=== PATIENT | female | born 1980 | race Two or more races ===

== ENCOUNTER 2017-03-08 05:02 | Emergency (ER) | payer OTHER ==
[~2017-03-08] VITALS: Ht 157.5 cm; Wt 54.4 kg
[2017-03-08 05:09] VITALS: BP 134/72
[2017-03-08] MEDS ORDERED: CARBAMIDE PEROXIDE OTIC 15 ML BOTTLE ONE (06:24)
[2017-03-08] MEDS ORDERED: CARBAMIDE PEROXIDE OTIC 15 ML BOTTLE OT ONE (07:00)
== END 2017-03-08 06:46 | disposition home or self-care (01) ==
LOC: ER 05:04
DX: K04.7 Periapical abscess without sinus (principal); H61.22 Impacted cerumen, left ear
CPT/HCPCS: 99283; A4606; Z7610

== ENCOUNTER 2017-04-08 03:57 | Emergency (ER) | payer OTHER ==
[~2017-04-08] VITALS: Ht 157.5 cm; Wt 55.8 kg
[2017-04-08 04:00] VITALS: BP 129/74
== END 2017-04-08 04:51 | disposition home or self-care (01) ==
LOC: ER 04:01
DX: K04.7 Periapical abscess without sinus (principal); H61.22 Impacted cerumen, left ear; F17.200 Nicotine dependence, unspecified, uncomplicated
CPT/HCPCS: 69209; 99283; A4606; Z7610

== ENCOUNTER 2018-01-18 01:48 | Emergency (ER) | payer MEDICAID, OTHER ==
[~2018-01-18] VITALS: Ht 157.5 cm; Wt 56.7 kg
--- NOTE | 2018-01-18 01:48 | NUR ---
BB SELF; LEFT MOUTH, FACE SWELLING X 2 DAY. NO SOB. PAIN /10 W/SWELLING. VSS NAD. A/X4 ABLE TO MAKE NEEDS KNOWN. WILL CONTINUE TO MONITOR FOR ANY CHANGES DURING THE SHIFT.
[2018-01-18] MEDS ORDERED: CLINDAMYCIN 600 MG in IV D5W 100 ML IV ONE (03:00)
[2018-01-18] MEDS ORDERED: IOHEXOL-300 100 ML VIAL IV ONE (03:22)
[2018-01-18] MEDS ORDERED: IV NS 0.9% 250 ML IV ONE (03:23)
[2018-01-18] MEDS ORDERED: CLINDAMYCIN 900 MG/6 ML VIAL ONE (03:24)
[2018-01-18 03:32] LABS: BASOPHILS % (AUTO) 0.7 % (0.0-2.0); EOSINOPHILS % (AUTO) 1.3 % (0.0-6.0); HEMATOCRIT 32 % (33-45); HEMOGLOBIN 10.6 g/dL (11.5-14.8); LYMPHOCYTES # (AUTO) 1.9 /CMM (0.8-4.8); MEAN CORPUSCULAR HGB CONC 33 g/dl (31.0-36.0); MEAN CORPUSCULAR VOLUME 79 fL (82-100); MONOCYTES # (AUTO) 0.6 /CMM (0.1-1.30); MONOCYTES % (AUTO) 7.6 % (2.0-12.0); NEUTROPHILS # (AUTO) 4.8 /CMM (1.8-8.9); NEUTROPHILS % (AUTO) 64.4 % (43.0-81.0); PLATELET COUNT (AUTO) 309 /CMM (150-450); RDW COEFFICIENT OF VARIATION 15.1 (11.5-15.0); RED BLOOD CELL COUNT(AUTO) 4.11 MIL/uL (4.0-5.2); WHITE BLOOD COUNT (AUTO) 7.4 K/uL (4.3-11.0)
[2018-01-18 03:40] LABS: CALCIUM, SERUM 8.6 mg/dL (8.5-10.1); CREATININE 0.7 mg/dL (0.6-1.3); POTASSIUM 3.6 mmol/L (3.5-5.1)
--- NOTE | 2018-01-18 04:00 | NUR ---
PT OFF TO CT
--- NOTE | 2018-01-18 04:17 | NUR ---
PT BACK FROM CT
--- NOTE | 2018-01-18 04:47 | NUR ---
PT COMFORTABLE IN BED SLEEPING.
[2018-01-18 05:19] VITALS: BP 131/81
== END 2018-01-18 05:20 | disposition home or self-care (01) ==
LOC: ER 01:48
DX: K04.7 Periapical abscess without sinus (principal); L03.211 Cellulitis of face; J32.9 Chronic sinusitis, unspecified; F17.200 Nicotine dependence, unspecified, uncomplicated; Z60.2 Problems related to living alone
CPT/HCPCS: 36415; 70486; 70491; 80048; 83605; 85025; 85730; 87040 ×2; 96365; 99285; A4606; J3490 ×2; J7050; J7060 ×2; Q9967; Z7610

== ENCOUNTER → 2023-03-06 | Emergency (ER) | payer MEDICAID, OTHER ==
[~2023-03-06] VITALS: Ht 165.1 cm; Wt 76.2 kg
[~2023-03-06] MED LIST: AMOX500C2 PO; CLINDAMYCIN 900 MG/6 ML VIAL IM ONE; CLINDAMYCIN 900 MG/6 ML VIAL ONE; HYDR-3972 PO; LIDOCAINE /MPF 1% VIAL 5 ML VIAL ONE
--- NOTE | 2023-03-06 12:35 | NUR ---
C/O RIGHT JAW PAIN AND SWELLING. PT STATES "IT'S DENTAL ABCESS". dr mathew at bedside for eval. put pt on bedside monitor. awaits for MD ORDER.
--- NOTE | 2023-03-06 12:45 | NUR ---
DR BAILEY PERFORMED ASPIRATION DRAINAGE TO PT. AND WAS TOLD TO SEE HER DENTIST WHEN AVAILABLE AND IF THE SWELLING PROGRESS.
[2023-03-06 13:22] VITALS: BP 116/66
== END | disposition home or self-care (01) ==
LOC: ER 12:24
DX: K04.7 Periapical abscess without sinus (principal); F17.200 Nicotine dependence, unspecified, uncomplicated; Z60.2 Problems related to living alone
CPT/HCPCS: 99283; 96372; J3490 ×2

== ENCOUNTER 2023-04-07 21:13 | Emergency (ER) | payer OTHER ==
[~2023-04-07] VITALS: Ht 157.5 cm; Wt 63.5 kg
[~2023-04-07 21:13] MED LIST changes: -CLINDAMYCIN 900 MG/6 ML VIAL IM ONE; -CLINDAMYCIN 900 MG/6 ML VIAL ONE; -LIDOCAINE /MPF 1% VIAL 5 ML VIAL ONE
[2023-04-07 21:37] VITALS: BP 122/69; TEMP 98.1
[2023-04-07] MEDS ORDERED: CYCLOBENZAPRINE 10 MG TABLET ONE (21:57)
[2023-04-07] MEDS ORDERED: KETOROLAC TROMETHAMINE INJ 30 MG/ML VIAL ONE (21:57)
[2023-04-07] MEDS ORDERED: CYCLOBENZAPRINE 10 MG TABLET PO ONE (22:00)
[2023-04-07] MEDS ORDERED: KETOROLAC TROMETHAMINE INJ 60 MG/2 ML VIAL IM ONE (22:00)
[2023-04-07] MEDS ORDERED: IBUP-1955 PO (22:49)
[2023-04-07] MEDS ORDERED: CYCL10TA9 PO (22:49)
== END 2023-04-07 23:12 | disposition home or self-care (01) ==
LOC: ER 21:18
DX: S46.812A Strain of other muscles, fascia and tendons at shoulder and upper arm level, left arm, initial encounter (principal); S00.83XA Contusion of other part of head, initial encounter; F17.200 Nicotine dependence, unspecified, uncomplicated; Z79.899 Other long term (current) drug therapy; Z88.0 Allergy status to penicillin; V09.9XXA Pedestrian injured in unspecified transport accident, initial encounter; Y93.89 Activity, other specified; Y92.89 Other specified places as the place of occurrence of the external cause; Y99.8 Other external cause status
CPT/HCPCS: 99285; 72125; 96372; 73552; 73030; 70450; J1885